=== PATIENT | female | born 2000 | race Caucasian/White ===

== ENCOUNTER 2020-04-14 12:02 | Emergency (ER) | payer OTHER ==
[~2020-04-14] VITALS: Ht 177.8 cm; Wt 74.8 kg
[2020-04-14 12:37] LABS: ABSOLUTE EOSINOPHILS 0.1 thou/uL (0.0-0.7); ABSOLUTE LYMPHOCYTES 1.2 thou/uL (0.8-5.3); ABSOLUTE MONOCYTES 0.4 thou/uL (0.0-1.2); ABSOLUTE NEUTROPHILS 2.8 thou/uL (1.6-8.1); BASOPHILS 0.7 %; EOSINOPHILS 2.8 %; HEMATOCRIT 36.6 % (37.0-47.0); HEMOGLOBIN 12.5 gm/dL (12.0-15.0); LYMPHOCYTES 26.7 %; MCH 29.3 pg (26.0-34.0); MCHC 34.1 g/dL (28.0-37.0); MCV 85.8 fL (80.0-100.0); MONOCYTES 7.8 %; MPV 8.2 fl. (7.2-11.1); NUCLEATED RBCS 0 /100WBC; PLATELET COUNT* 211 thou/uL (150-400); RBC 4.26 mil/uL (4.20-5.00); RDW-CV 13.1 % (10.5-14.5); WBC 4.6 thou/uL (4.0-11.0)
[2020-04-14 12:50] LABS: CALCIUM 9.1 mg/dL (8.5-10.1); CREATININE 0.9 mg/dL (0.6-1.3); POTASSIUM 3.7 mmol/L (3.5-5.1)
[2020-04-14 12:53] LABS: INR 1.1; PROTIME 11.2 Seconds (9.20-11.50)
[2020-04-14 13:04] LABS: ALBUMIN 3.8 g/dL (3.4-5.0); CK-MB MASS 0.7 ng/mL (<0.5-3.6); TOTAL BILIRUBIN 0.8 mg/dL (<0.1-1.0); TOTAL PROTEIN 7.2 g/dL (6.4-8.2)
[2020-04-14 13:25] VITALS: BP 117/73
--- NOTE | 2020-04-15 08:59 | EKG ---
[place] [address] ELECTROCARDIOGRAM REPORT Name: ANNE CHAVES Room: [facility]#: [id number] Admission: 04/14/20 Attend Phys: Discharge: 04/14/20 Date of : 89 Date of Service: 04/14/20 1208 Report #: [id number] THIS REPORT FOR: //name// [facility] ED Test Date: 2020-04-14 Test Time: 12:08:53 Pat Name: ANNE CHAVES Department: Room: Gender: Certified Professional Controller: : 2000 Requested By: Jad Raman Order Number: [id number] MD: Alan Bond Measurements Intervals [place] Rate: 71 P: 69 [place]: 149 QRS: 101 QRSD: 102 T: 36 QT: 413 QTc: 449 Interpretive Statements Sinus rhythm Borderline right axis deviation No previous ECG available for comparison Electronically Signed On 04-15-2020 8:59:14 [employer]ARE MANAGER by Alan Bond [email or web address] <ELECTRONICALLY SIGNED> By: Alan Bond MD, [facility] 04/15/20 0859 D: [id number] Alan Bond MD, FACC /EPI
== END 2020-04-14 13:25 | disposition home or self-care (01) ==
LOC: M.ERS 12:02
PROVIDERS: Family Medicine
DX: R07.89 Other chest pain (principal); Z20.828 Contact with and (suspected) exposure to other viral communicable diseases